=== PATIENT | male | born 2000 | race Hispanic/Latino ===

== ENCOUNTER 2020-09-07 21:32 | Emergency (ER) | payer SELFPAY ==
[2020-09-07 22:10] VITALS: BP 132/88; PULSE 96; RESP 18; TEMP 37.1; O2SAT 99
[2020-09-08 00:30] VITALS: BP 126/78; PULSE 88; RESP 20; TEMP 36.8; O2SAT 100
--- NOTE | 2020-09-08 01:17 | ED_ITS ---
HPI - Skin/Abscess/Foreign Bdy General Chief complaint: Skin/Abscess/Foreign Body Stated complaint: infected pimple on cheek Time Seen by Provider: 09/08/20 00:54 Source: patient Mode of arrival: ambulatory Limitations: no limitations History of Present Illness HPI narrative: Patient is a 18-year-old male complaining of left cheek swelling and redness. Patient states that he popped a pimple that area 2 days ago. Patient states that when he tried to squeeze it earlier today there was pus that came out. Patient denies any feve. Denies any lip, tongue or throat swelling. Review of Systems Review of Systems: All systems reviewed & are unremarkable except as noted in HPI and below PMFSH Comments Past medical history: None Social history: Non-smoker, no EtOH or drug use Family history: Noncontributory Course Vital Signs Vital signs: Vital Signs Temperature 37.1 C 09/07/20 22:10 Pulse Rate 96 09/07/20 22:10 Respiratory Rate 18 09/07/20 22:10 Blood Pressure 132/88 09/07/20 22:10 Pulse Oximetry 99 09/07/20 22:10 Temperature 37.1 C 09/07/20 22:10 Pulse Rate 96 09/07/20 22:10 Respiratory Rate 18 09/07/20 22:10 Blood Pressure 132/88 09/07/20 22:10 Pulse Oximetry 99 09/07/20 22:10 MDM - Skin/Abscess/Foreign Bdy Differential Diagnosis Differential diagnosis: Likely abscess of skin or subcutaneous tissue, cellulitis, insect bites, impetigo and contact dermatitis Discharge Plan Discharge Clinical Impression: Cellulitis Qualifiers: Site of cellulitis: face Qualified Code(s): L03.211 - Cellulitis of face Patient Disposition: Home, Self-Care Condition: Stable Instructions: Cellulitis (ED) Prescriptions: New doxycycline hyclate 100 mg capsule 100 mg PO BID Qty: 14 RF: 0 Follow-up/Referrals: PHYSICIAN,[employer] [Primary Care Provider] - 09/09/20 Time of Disposition: 01:20
[2020-09-08 02:15] VITALS: BP 128/70; PULSE 80; RESP 16; TEMP 36.8; O2SAT 100
== END 2020-09-08 02:16 | disposition home or self-care (01) ==
PROVIDERS: Emergency Provider Emergency Medicine
DX: L03.211 Cellulitis of face (principal)
CPT/HCPCS: 99283

== ENCOUNTER 2020-09-08 11:45 | Emergency (ER) | payer SELFPAY ==
[2020-09-08 11:52] VITALS: BP 132/76; PULSE 92; RESP 16; TEMP 36.5; O2SAT 100
--- NOTE | 2020-09-08 12:02 | ED.SKABFB ---
HPI - Skin/Abscess/Foreign Bdy General Chief complaint: Skin/Abscess/Foreign Body Stated complaint: left side swollen face Time Seen by Provider: 09/08/20 11:57 Source: patient and RN notes reviewed Mode of arrival: ambulatory Limitations: no limitations History of Present Illness HPI narrative: 20-year-old male presents with concern for red, swollen, painful area on his left cheek. He reports he was in the emergency room last night but they did not do anything . Patient later reports he was given a paper prescription for antibiotic which he dropped off at the pharmacy and did not picker. He reports he has began to have a small amount of swelling under his left eye. Denies acute vision changes. Denies fever, general malaise. MD complaint: abscess/boil Related Data Allergies Allergy/AdvReac Type Severity Reaction Status Date / Time No Known Allergies Allergy Verified 09/08/20 12:03 Review of Systems Review of Systems: Narrative: CONSTITUTIONAL: Denies malaise, chills, sweats, or fever. SKIN: Reports an abscess to the left cheek MUSCULOSKELETAL: Denies myalgia. NEUROLOGIC: Denies headache. All systems reviewed & are unremarkable except as noted in HPI and below PMFSH Social History Social History Gender identity (if verbalized by the patient): Male Comments At time of signature, agree with nursing past medical, surgical, social and family history. There is no relevant family history pertinent to the presenting complaint Exam Narrative: Exam Narrative: GENERAL: Well-appearing, well-nourished, and in no acute distress. HEAD: Normocephalic, atraumatic. EYES: PERRLA, conjunctivae clear. Mild superficial lower eyelid edema ENT: Nares clear. Mucous membranes moist. Oropharynx without edema, erythema or lesions. Tonsils not enlarged and without exudate. NECK: Supple. No lymphadenopathy. CHEST: No respiratory distress. Speaks in full sentences. HEART: Regular rate and rhythm SKIN: Warm, dry. 3 cm x 3 cm area of erythema, induration, tenderness with central scab without drainage noted to the left cheek, not involving the periorbital space NEURO: Alert and oriented x3 PSYCH: Normal mood and affect Course Course Emergency Course: Explained to patient that he will not see improvement in his infection if he does not picker his antibiotic and take as directed until complete. Patient reports antibiotic was 1 to be $60, which he did not have. Good Rx card given to patient to facilitate antibiotic compliance. Patient is aware of diagnosis, understands and agrees to treatment plan. Anticipatory guidance given. Patient agrees to follow-up as directed and is aware of reasons to seek care at the emergency department. Portions of this record may have been created with voice recognition software Vital Signs Vital signs: Vital Signs Temperature 97.7 F 09/08/20 11:52 Pulse Rate 92 09/08/20 11:52 Respiratory Rate 16 09/08/20 11:52 Blood Pressure 132/76 09/08/20 11:52 Pulse Oximetry 100 09/08/20 11:52 Temperature 97.7 F 09/08/20 11:52 Pulse Rate 92 09/08/20 11:52 Respiratory Rate 16 09/08/20 11:52 Blood Pressure 132/76 09/08/20 11:52 Pulse Oximetry 100 09/08/20 11:52 Reviewed. Critical Care Time Critical Care Time Critical Care Time: No Discharge Plan Discharge Clinical Impression: Abscess of face Patient Disposition: Home, Self-Care Condition: Stable Instructions: Antibiotic Form, Warm Compress or Soak (ED) Additional Instructions: netbackup engineer your antibiotic that were prescribed in the emergency room and take as directed. Your infection will not go away without an antibiotic. Also combine the antibiotic with warm moist compresses and ibuprofen. If your symptoms have not improved in 48 hours after taking antibiotic please return to the emergency room for further evaluation. Prescriptions: New ibuprofen 800 mg tablet
== END 2020-09-08 12:10 | disposition home or self-care (01) ==
PROVIDERS: Emergency Provider Nurse Practitioner
DX: L02.01 Cutaneous abscess of face (principal)
CPT/HCPCS: 99213; G0463